=== PATIENT | male | born 1995 ===

== ENCOUNTER 2021-04-10 19:16 | Emergency (ER) | payer OTHER ==
[~2021-04-10] VITALS: Ht 170.2 cm; Wt 81.6 kg
[2021-04-10] MEDS ORDERED: DICLOFENAC POTA50 MG PO (22:30)
[2021-04-10] MEDS ORDERED: CYCLOBENZAPRINE10 MG PO (22:30)
== END 2021-04-10 23:25 ==
LOC: ER 19:16
DX: M62.830 Muscle spasm of back (principal); Z03.818 Encounter for observation for suspected exposure to other biological agents ruled out; R43.0 Anosmia; R43.2 Parageusia; M79.10 Myalgia, unspecified site

== ENCOUNTER 2021-04-27 07:19 | Emergency (ER) | payer OTHER ==
[~2021-04-27] VITALS: Ht 170.2 cm; Wt 85.7 kg
[~2021-04-27 07:19] MED LIST: CYCLOBENZAPRINE10 MG PO; DICLOFENAC POTA50 MG PO
== END 2021-04-27 09:46 | disposition home or self-care (01) ==
LOC: ER 07:19
DX: J03.90 Acute tonsillitis, unspecified (principal); Z03.818 Encounter for observation for suspected exposure to other biological agents ruled out

== ENCOUNTER 2021-05-10 01:49 | Emergency (ER) | payer OTHER ==
[~2021-05-10] VITALS: Ht 170.2 cm; Wt 61.2 kg
[2021-05-10] MEDS ORDERED: ABATINEX680 MG (02:12)
[2021-05-10] MEDS ORDERED: AMOXICILLIN (02:13)
[2021-05-10] MEDS ORDERED: CLAVULANATE (02:13)
[2021-05-10] MEDS ORDERED: CLEOCIN HCL300 MG PO (04:48)
[2021-05-10] MEDS ORDERED: ORASEP SPRAY30 ML MM (04:48)
[2021-05-10] MEDS ORDERED: GILPHEX TR TAB1 EACH PO (04:48)
== END 2021-05-10 04:54 ==
LOC: ER 01:49
DX: J02.8 Acute pharyngitis due to other specified organisms (principal)

== ENCOUNTER 2021-06-28 12:03 | Emergency (ER) | payer OTHER ==
[~2021-06-28] VITALS: Ht 170.2 cm; Wt 86.2 kg
[~2021-06-28 12:03] MED LIST changes: +ABATINEX680 MG; +AMOXICILLIN; +CLAVULANATE; +CLEOCIN HCL300 MG PO; +GILPHEX TR TAB1 EACH PO; +ORASEP SPRAY30 ML MM
[2021-06-28] MEDS ORDERED: NORFLEX100MG PO (15:09)
[2021-06-28] MEDS ORDERED: KETO10TA2 PO (15:09)
== END 2021-06-28 15:10 | disposition home or self-care (01) ==
LOC: ER 12:03
DX: M54.50 Low back pain, unspecified (principal); I10 Essential (primary) hypertension

== ENCOUNTER 2022-12-18 06:06 | Emergency (ER) | payer OTHER ==
[~2022-12-18] VITALS: Ht 170.2 cm; Wt 85.7 kg
[~2022-12-18 06:06] MED LIST changes: +KETO10TA2 PO; +NORFLEX100MG PO
[2022-12-18] MEDS ORDERED: ENALAPRIL MALEA10 MG PO (06:19)
== END 2022-12-18 09:32 | disposition home or self-care (01) ==
LOC: ER 06:06
DX: R53.81 Other malaise (principal); G44.89 Other headache syndrome; I10 Essential (primary) hypertension; Z20.822 Contact with and (suspected) exposure to COVID-19

== ENCOUNTER 2023-02-16 08:45 | Emergency (ER) | payer OTHER ==
[~2023-02-16] VITALS: Ht 294.6 cm; Wt 97.5 kg
[~2023-02-16 08:45] MED LIST changes: +ENALAPRIL MALEA10 MG PO
== END 2023-02-16 12:55 | disposition home or self-care (01) ==
LOC: ER 08:45
DX: J02.9 Acute pharyngitis, unspecified (principal); G44.89 Other headache syndrome; R11.10 Vomiting, unspecified; Z20.822 Contact with and (suspected) exposure to COVID-19; I10 Essential (primary) hypertension